=== PATIENT | male | born 1995 | race Caucasian/White ===

== ENCOUNTER 2022-10-21 14:58 | Emergency (ER) | payer OTHER, SELFPAY ==
[2022-10-21 14:59] VITALS: PULSE 107; RESP 20; TEMP 36.4; O2SAT 100; BMI 26.4
--- NOTE | 2022-10-21 15:11 | ED.VIS.LOWEX ---
HPI History of Present Illness Chief Complaint: Laceration Detail of Chief Complaint: Laceration proximal anterior left leg Informant: patient Occured/Mechanism Mechanism/Context: Yes blunt trauma and Yes fall Comment: Patient fell from 4 feet height onto a door hinge. He sustained laceration anterior proximal left leg inferior to the patella Onset/Context/Timing Context: Sudden Onset Timing: Continuous Quality of Pain: Dull and Aching Location: Anterior proximal left leg Current Severity: Mild Maximum Severity: Moderate Worsened by: Movement Relieved by: Nothing Associated Symptoms Associated Symptoms: Negative for Parasthesia, Weakness or Loss of Funtion Narrative Narrative: Patient is a 26-year-old male who presents with laceration anterior proximal left leg. This occurred due to a fall and blunt trauma. Tetanus will need updated. He denies paresthesia, anesthesia or motor weakness. He will was able to ambulate. He is not on an anticoagulant. He last ate at noon. He has no allergies to antibiotics. Tetanus Immunization: >10 years Prior similar symptoms: No Recent Illness/Hospitalization: No PFSH PFSH Medical History no medical history no medical history Home Medications cephalexin 500 mg capsule 500 mg PO Q6 #12 CAPSULES 10/21/22 [Rx Last Taken Unknown] hydrocodone-acetaminophen 5-325mg 5mg-325mg 1 tab PO Q6H PRN PRN Pain 3 days #10 TABLETS 10/21/22 [Rx Last Taken Unknown] Allergy/AdvReac Type Severity Reaction Status Date / Time No Known Allergies Allergy Verified 10/21/22 14:59 Surgical History no surgical history no surgical history Social History (Updated 10/21/22 @ 15:[address] Rohith Abarca MD) Smoking Status: Current every day smoker tobacco type: cigarettes substance use type: does not use ROS ROS ED Constitutional Constitutional ED: Denies chills, fever(s), subjective, sweats or weight loss Eyes Eyes: Denies blurry vision, change in vision or diplopia ENT ENT ED: Denies ear pain or sore throat Cardiovascular Cardiovascular: Denies chest pain or palpitations Respiratory/Chest Respiratory/Chest: Denies cough, dyspnea or dyspnea on exertion Gastrointestinal Gastrointestinal: Denies nausea or vomiting Genitourinary Genitourinary ED: Denies hematuria Musculoskeletal Musculoskeletal: Reports other Details: Per HPI narrative ; Denies arthralgias, back pain, myalgias or neck pain Integumentary Reports other Details: 16 cm anterior proximal left leg laceration Neurologic Neurologic: Denies paresthesias or weakness Hematologic/Lymphatic Hematologic/Lymphatic: Denies easy bleeding or easy bruising EXAM Physical Exam Const Vital Signs: 10/21/22 14:59 Temperature 97.5 F L Temperature Source Temporal Pulse Rate 107 H Respiratory Rate 20 H Pulse Ox 100 Oxygen Delivery Method Room Air Positive well nourished and well developed Constitutional Narrative: Patient appears uncomfortable. Complains of pain with removing dressing that was applied. General Appearance ED: well developed HEENT Reports moist mucous membranes HEENT Narrative: No septal deviation hematoma. normocephalic and atraumatic Eyes Eyes Narrative: Pupils equal round reactive. Extraocular muscles are intact. There is no subconjunctival merged. Neck full ROM and supple Chest Wall inspection of chest normal and palpation of chest normal Resp normal respiratory effort, no retractions and clear to auscultation bilaterally Cardio regular rate, regular rhythm, S1 normal heart sound and S2 normal heart sound Back/Spine no CVA tenderness Cervical Spine: Negative for cervical spine tenderness Thoracic Spine / Upper Back: Negative for thoracic spinal tenderness Extremity Negative for normal to inspection Extremity Narrative: 16 cm V-shaped laceration anterior proximal left leg with exposure of the proximal tibia. There is no evidence of a traumatic arthrotomy. He has full active extension and flexion. There is no pain medially over the joints. There is no pain or fullness in the popliteal fossa. There is no effusion noted General Extremety ED: Negative for cyanosis or edema General Extremity: Negative for cyanosis or edema Neuro oriented x3, CN's II-XII intact bilaterally, moves all extremities and no sensory deficits noted Sensorium / Orientation: alert Psych mental status grossly normal Skin Skin Narrative: 16 cm V-shaped laceration as previously described with no evidence of neurovascular compromise. DP and PT pulse are palpable on the left side. MDM MDM MDM Narrative Medical decision making narrative: Patient was made NPO. He was treated 1 g of Ancef. X-ray will be obtained to rule out significant fracture. Will discuss case with orthopedics. Dr. Moore was made aware of patient's injury and involvement of the patella tendon. He requested a knee immobilizer. He agrees with cephalexin. He would like patient to call the office and he will see him in the next 2 to 3 days for wound check. Radiography X-Ray: - (2 view x-ray of the left tibia-fibula was independent reviewed interpreted by me at 1530 is negative for any acute fracture. There is soft tissue defect noted. There is no foreign body noted.) Diagnostic Testing: Clinical Impression(s) from Imaging Studies Tibia/Fibula X-Ray 10/21/22 15:20 IMPRESSION: Soft tissue laceration overlying the anterior proximal portion of the tibia. No radiopaque foreign body is seen. Electronically Signed: Evans Bobby MD at 15:32 EST , Procedures Other Procedures Procedure(s): Laceration repair: Wound was anesthetized with 1% lidocaine by local infiltration. A total of 7 cc was infiltrated. The wound was irrigated with 1 L of sterile saline. 3 subcu stitches using 4-0 Vicryl were placed to approximate the wound and alleviate tension. The skin was closed alternating vertical and horizontal mattress. The most cephalad medial portion of the laceration had 1 simple erupted suture placed. A total of 21 stitches were placed. Discharge Plan Triage Chief Complaint: Laceration ED Provider: Rohith Abarca Dx/Rx/DC Orders Clinical Impression: Laceration of left lower leg with tendon involvement Instructions: ED Laceration Extremity Prescriptions: New cephalexin [cephalexin] 500 mg capsule 500 mg PO Q6 Qty: 12 0RF hydrocodone-acetaminophen [hydrocodone-acetaminophen] 5-325 mg tablet 1 tab PO Q6H PRN PRN (Reason: Pain) 3 Days Qty: 10 0RF Primary Care Provider: Care Physician,No Primary Referrals: Danilo Moore DO [Med Staff - Active Staff] - 2 Days for wound check NOT,DEFINED [Non-Staff] - Activity Restrictions/Additional Instructions: You may feel worse over the next 24 to 48 hours. Wear knee immobilizer while awake and up and about. You may remove the knee immobilizer when you go to bed. Disposition Disposition: Home, Self Care Discharge Date/Time: 10/21/22 17:18
--- NOTE | 2022-10-21 15:20 | RAD_ITS ---
STUDY: X-RAY - LEFT TIBIA AND FIBULA REASON FOR EXAM: Male, 26 years old. Injury/Pain -- Evidence of trauma proximal tibia TECHNIQUE: 4 view(s) of the tibia and fibula were obtained. COMPARISON: None. FINDINGS: Normal visualized tibia. Normal visualized fibula. Soft tissue laceration overlying the anterior proximal tibia. RAD/Tibia & Fibula 2 Views IMPRESSION: Soft tissue laceration overlying the anterior proximal portion of the tibia. No radiopaque foreign body is seen. Electronically Signed: Evans Bobby MD at 15:32 EST ,
--- NOTE | 2022-10-21 15:22 | ED.RN ---
[employer] [phone], STATES NO HE THINKS NO DRUG SCREEN NECESSARY BUT WILL CHECK WITH HR AND CALL BACK IF NEEDED.
[2022-10-21] MEDS: Cefazolin 1 GM/50 ML BAG IV (15:35)
[2022-10-21] MEDS: HYDROmorphone 0.5 MG/0.5 ML SYRINGE IV ×3 (15:37→16:47)
[2022-10-21] MEDS: Lidocaine 1% (20 ml mdv) 20 ML Vial INFILT (17:17)
== END 2022-10-21 17:18 | disposition home or self-care (01) ==
PROVIDERS: Emergency Provider Emergency Medicine; Visit Provider Emergency Medicine
DX: S76.122A Laceration of left quadriceps muscle, fascia and tendon, initial encounter (principal); W17.89XA Other fall from one level to another, initial encounter; F17.210 Nicotine dependence, cigarettes, uncomplicated
CPT/HCPCS: 12005; 73590; 96365; 96366; 96375; 96376; 99285; J7050; A4216

== ENCOUNTER → 2024-02-11 | Outpatient (CLI) | payer BC, SELFPAY ==
[2024-02-11 17:45] LABS: Absolute Lymphocyte Count 2.66 X10^3/uL (0.83-4.51); Absolute Neutrophil Count 4.2 X10^3/uL (2.0-7.7); Basophil# 0.06 X10^3/uL; Basophil% 0.8 % (0-1); Eosinophil# 0.13 X10^3/uL; Eosinophils% 1.7 % (0-5); Hematocrit 42.3 % (40-54); Hemoglobin 14.6 g/dL (13.0-16.5); Lymphocyte # 2.66 X10^3/ul (0.83-4.51); Lymphocyte % 34.6 % (19-41); Mean Corp Hgb Conc 34.5 g/dL (32-36); Mean Corpuscular Hgb 30.2 pg (27.0-32.0); Mean Corpuscular Volume 87.4 fL (80-94); Mean Platelet Vol. 11.3 fl (6.2-12.0); Monocyte# 0.62 X10^3/uL; Monocyte% 8.1 % (0-10); NRBC Flagged by Analyzer 0 % (0-5); Neutrophil # 4.19 X10^3/uL (2.7-7.7); Neutrophil % 54.5 % (47-70); Platelet Count 305 K/mm3 (150-450); RBC Distribution Width CV 11.9 % (11.6-14.6); RBC Distribution Width SD 38.2 fl (35.1-43.9); Red Blood Count 4.84 M/mm3 (4.6-6.2); White Blood Count 7.7 K/mm3 (4.4-11.0)
[2024-02-11 18:12] LABS: Vitamin D,25 Hydroxy 26.4 ng/mL
[2024-02-11 18:19] LABS: ALB/GLOB Ratio 1.3 RATIO (0.9-2.4); AST(SGOT) 18 U/L (15-37); Alanine Aminotransfer ALT/SGPT 29 U/L (16-61); Albumin, Serum 4.3 g/dL (3.2-5.0); Alkaline Phosphatase 78 U/L (45-117); Anion Gap 9 (5-15); BUN 16 mg/dL (7-18); Calcium,Total 9.2 mg/dL (8.5-10.1); Chloride 109 mmol/L (98-107); Cholesterol 180 mg/dL (200); EST Glomerular Filtration Rate 94 mL/min (>60); Est Glom Filt Rate - Afr Amer 113 mL/min (>60); Globulin 3.4 g/dL (2.2-4.2); Glucose 93 mg/dL (74-106); High Density Lipoprotein 42 mg/dL; Potassium 3.5 mmol/L (3.5-5.1); Protein, Total 7.7 g/dL (6.4-8.2); Sodium Level 140 mmol/L (136-145); Thyroid Stim Hormone (TSH) 1.48 uIU/mL (0.358-3.74); Triglycerides 184 mg/dL; Very Low Density Lipoprotein 37 mg/dL (5-40)
[2024-02-13 15:08] LABS: Deamidated Gliadin IgA 2 units (0-19); Deamidated Gliadin IgG 8 units (0-19); Endomysial Antibody IgA Negative (Negative); Immunoglobulin A 134 mg/dL (90-386); t-Transglutaminase IgA <2 U/mL (0-3)
== END | disposition home or self-care (01) ==
PROVIDERS: PCP Family Medicine; Referring Provider Family Medicine; Visit Provider Family Medicine
DX: R10.9 Unspecified abdominal pain (principal); E66.9 Obesity, unspecified
CPT/HCPCS: 36415; 80053; 80061; 82306; 82784; 83516; 84443; 85025; 86255